=== PATIENT | male | born 1960 | race Caucasian/White ===

== ENCOUNTER 2023-07-09 08:53 | Emergency (ER) | payer OTHER, SELFPAY ==
[2023-07-09 08:53] VITALS: BP 185/103
--- NOTE | 2023-07-09 09:14 | EDRN ---
Last tylenol 08:00; last ibuprofen 02:30.
--- NOTE | 2023-07-09 09:35 | ED.GENMED ---
History of Present Illness
General
Chief Complaint: Musculo-Skeletal Complaint
Source: patient and spouse
Exam Limitations: none
Time Seen by Provider: 07/09/23 09:02
Nursing documentation reviewed up to this point in time: agreed with
Travel History
Have you had any contact with someone who has COVID-19?: No
Do you have any symptoms of coronavirus? Fever > 100 degrees, chills, cough, shortness of breath, sore throat, loss of taste or smell, muscle aches, or headache?: No
History of Present Illness
History of Present Illness:
Patient presents to ED secondary to worsening right wrist pain with swelling, 1 day after shoveling snow with ice off his driveway. Denies direct trauma. Denies loss of sensation or weakness. Patient has been taking Tylenol, Motrin, and applying
ice at home with minimal relief in symptoms. Patient is right-hand dominant. Denies previous history of similar symptoms. Denies drinking alcohol. Denies history of gout. Denies recent change in diet. Denies recent illness.
Past History
Past History
ED Past Medical History: HTN, Psychiatric (Anxiety) and Other (Back pain, Cluster Headaches, Herniated L3-L4, Sleep apnea uses CPAP)
ED Past Surgical History: Appendectomy, Cardiac (Right carotid artery), Orthopedic (Left ankle reconstruction, Right and left knee replacements, Right elbow surgery, ) and Other (Hernia repair X 3)
Social History
Tobacco: Smoker
Alcohol: Occasional
Personal:
Living: with family
Review of Systems
Review of Systems
Allergies reviewed?: Yes
All Other Systems: ROS reviewed and negative except as documented in HPI and ROS
Constitutional: Reports no symptoms; Denies fever
Musculoskeletal: Reports other (Wrist pain)
Skin: Reports no symptoms
Neurological: Reports no symptoms; Denies weakness or numbness
Phy Exam
Physical Exam
Physical Exam:
Physical Exam
General: mild painful distress, not acutely ill. afebrile
Head: nc/at. eomi
Neck: supple. normal range of motion
Neuro: alert and oriented. no focal neurological deficits
Skin: no rash
Psychiatric: well kept. interactive and cooperative
Extremities: right wrist with diffuse tenderness to palpation, radial > ulnar, with mild swelling, without erythema/warmth. no deformity.
Course
Orders/Labs/Results
Orders:
Orders
07/09/23 08:57
CR Wrist - Right Min 3 Views Urgent
Comment:
Reason For Exam: pain
Hand, Right 3 View [CR Hand - Right Min 3 Views] Urgent
Comment:
Reason For Exam: pain
07/09/23 09:33
Ibuprofen [Motrin] 400 mg PO NOW STA
Oxycodone/Acetaminophen [Percocet 5/325] 1 tablet PO NOW STA
07/09/23 09:34
Ice Pack-Treatment DIRECTED
Location: right wrist
[place] Wrist Right-Tx ONCE
Vital Signs
Initial and Last Documented VS:
Initial Vital Signs
Temp Pulse Resp BP Pulse Ox
97.8 F 107 20 185/103 96
07/09/23 08:53 07/09/23 08:53 07/09/23 08:53 07/09/23 08:53 07/09/23 08:53
Last Documented Vital Signs
Temp Pulse Resp BP Pulse Ox
97.8 F 107 20 185/103 96
07/09/23 08:53 07/09/23 08:53 07/09/23 08:53 07/09/23 08:53 07/09/23 08:53
MDM/Problems Addressed
MDM/Problems Addressed:
X-ray: no acute findings.
History/exam consistent with likely wrist sprain from repetitive use during shoveling. Sawyer wrist splint provided along with recommendation to continue elevation, ice application, as well as PCP f/u.
*Critical Care Note
Total Time (30-74mins, 75-104mins- exclusive of procedures): Not Applicable
ED Attending Note
-
Portions of this chart may have been created with voice recognition software.� Occasional wrong word or��sound alike� substitutions may have occurred due to the inherent limitations of voice recognition software.
Discharge Plan
Departure
Patient Disposition: Home (Routine Discharge)
Date of Disposition: 07/09/23
Time of Disposition: 10:30
Patient with high blood pressure during this ER visit?: Yes
Condition: Good
Discharge Problem:
Muscle strain of wrist
Instructions: Sprain (DC), Splint Care
Prescriptions:
New
oxycodone-acetaminophen [Percocet] 5-325 mg Tablet
1 tab PO Q6HPRN PRN (Reason: pain) Qty: 12 0RF
No Action
ggksstut-zkk-CQ-lycopen-lutein [Centrum Silver] 1 EACH tablet
1 tab PO DAILY
[place] Carbonate
300 mg PO BID
cyclobenzaprine 10 MG tablet
5 mg PO TIDPRN PRN (Reason: muscle spasm) Qty: 0 0RF
gabapentin 100 MG capsule
400 mg PO TID Qty: 0 0RF
Patient Comments:
Does take more often if needed.
hydrocodone-acetaminophen 1 TABLET tablet
1 - 2 tab PO Q4HPRN PRN (Reason: moderate to severe pain) Qty: 30 0RF
hydrocodone-acetaminophen 1 TABLET tablet
1 - 2 tab PO Q4HPRN PRN (Reason: moderate to severe pain) Qty: 30 0RF
sennosides [senna] 1 TABLET tablet
2 tab PO HSPRN PRN (Reason: constipation) Qty: 0 0RF
acetaminophen 325 MG tablet
650 mg PO Q4HWA Qty: 0 0RF
polyethylene glycol 3350 17 GRAMS powder in packet
17 grams PO DAILYPRN PRN (Reason: constipation) Qty: 0 0RF
tramadol 50 MG tablet
50 mg PO Q6HPRN PRN (Reason: mild pain) Qty: 75 0RF
magnesium hydroxide 30 ML suspension
30 ml PO HSPRN PRN (Reason: constipation) Qty: 0 0RF
aspirin 325 MG tablet,delayed release (DR/EC)
325 mg PO DAILY Qty: 0 0RF
bisacodyl [OneLAX Bisacodyl] 10 MG suppository
10 mg [place] DAILYPRN PRN (Reason: constipation) Qty: 0 0RF
pantoprazole 40 MG tablet,delayed release (DR/EC)
40 mg PO HS Qty: 30 0RF
docusate sodium 100 MG capsule
100 mg PO DAILY Qty: 0 0RF
bisacodyl 5 MG tablet,delayed release (DR/EC)
10 mg PO DAILYPRN PRN (Reason: constipation) Qty: 0 0RF
oxycodone 5 MG tablet
5 mg PO Q4HPRN PRN (Reason: moderate-severe pain) Qty: 75 0RF
Rx Instructions:
dx joint replacement
nicotine 21 MG patch 24 hour
21 mg transdermal DAILY Qty: 0 0RF
Patient Comments:
patch dated 02/02/14 found on RUE
Rx Instructions:
change to 14Mcg after one week and continue for 3 weeks, then decrease to 7mcg x 3 weeks , then d/c
metoprolol succinate 25 MG tablet extended release 24 hr
12.5 mg PO DAILY Qty: 30 0RF
Rx Instructions:
sig: take 1/2 tab po daily
Referrals:
Enoc Alatorre MD [Family Provider] -
Activity Restrictions/Additional Instructions:
As discussed, please follow-up with your primary care physician for reevaluation, including potential referral to orthopedic surgeon, if your symptoms persist. Please continue to use provided wrist splint as well as continuing to elevate the
affected arm as well as application of ice. Please continue to supplement Motrin with prescribed pain medication. Your prescription has been sent electronically to [facility] pharmacy in [place].
Interventions
Interventions:
*General Assessment Last Done: 07/09/23 10:54
*ED COVID-19 Vaccine History Last Done: 07/09/23 08:53
*Nursing Disposition Last Done: 07/09/23 10:54
ED-Musculoskeletal Assessment Last Done: 07/09/23 09:10
Discharge Date and Time
Discharge Date/Time: 07/09/23 10:56
[2023-07-09] MEDS: MOTRIN 400 MG PO (09:41)
[2023-07-09] MEDS: PERCOCET 5/325 1 TABLET PO (09:41)
== END 2023-07-09 10:56 | disposition home or self-care (01) ==
LOC: EMR 08:53
PROVIDERS: EMERGENCY PHYSICIAN Emergency Medicine; FAMILY PHYSICIAN Family Medicine
DX: S66.911A Strain of unspecified muscle, fascia and tendon at wrist and hand level, right hand, initial encounter (principal); X50.0XXA Overexertion from strenuous movement or load, initial encounter; I10 Essential (primary) hypertension; F17.200 Nicotine dependence, unspecified, uncomplicated
CPT/HCPCS: 99283; 73110; 73130

== ENCOUNTER 2023-10-28 19:38 | Emergency (ER) | payer OTHER, SELFPAY ==
[2023-10-28 19:41] VITALS: BP 180/100
[2023-10-28 20:58] VITALS: BP 151/87
[2023-10-28 20:59] VITALS: BMI 33.7
[2023-10-28 22:14] LABS: % Basophils 1.1 % (0-2); % Eosinophils 4.4 % (0-6); % Immature Granulocytes 0.2 % (0-0.5); % Lymphocytes 34.1 % (20.5-51.1); % Monocytes 7.3 % (1.7-9.3); % Neutrophils 52.9 % (42.2-75.2); Absolute Basophils 0.1 10^3/uL (0-0.2); Absolute Eosinophils 0.4 10^3/uL (0-0.7); Absolute Lymphocytes 2.7 10^3/uL (1.2-3.4); Absolute Monocytes 0.6 10^3/uL (0.1-0.6); Absolute Neutrophils 4.2 10^3/uL (1.4-6.5); Hematocrit 40.7 % (39.0-52.0); Hemoglobin 13.7 g/dL (13.0-18.0); Mean Corp Hgb Conc. 33.7 g/dL (33.0-37.0); Mean Corpuscular Hgb 29.1 pg (27.0-31.0); Mean Corpuscular Volume 86.4 fL (80.0-94.0); Mean Platelet Volume 8.6 fL (7.4-10.4); Nucleated Red Blood Cells % 0 % (-); Platelet Count 244 10^3/uL (130-400); Red Blood Cell Count 4.71 10^6/uL (4.70-6.10); Red Cell Dist. Width 15.5 % (11.5-14.5)
[2023-10-28 22:25] LABS: ALT (SGPT) < 10 U/L (0-50); AST (SGOT) 17 U/L (17-59); Alkaline Phosphatase 70 U/L (38-126); Blood Urea Nitrogen 13 mg/dl (9-20); Calcium 9.6 mg/dl (8.4-10.2); Carbon Dioxide 22 mmol/L (22-30); Chloride 108 mmol/L (98-107); Estimated Creatinine Clearance > 125 ml/min; Glucose 95 mg/dl (70-99); Lithium 0.5 mmol/L (0.6-1.2); Potassium 3.9 mmol/L (3.5-5.1); Sodium 137 mmol/L (135-145); Total Bilirubin 0.3 mg/dl (0.2-1.3); Total Protein 6.7 g/dl (6.3-8.2); eGFR > 60.00
[2023-10-28 22:37] LABS: NT-proBNP 86.8 pg/ml; Troponin I < 0.012 ng/ml
--- NOTE | 2023-10-28 22:41 | ED.GENMED ---
History of Present Illness
General
Chief Complaint: Dizziness
Source: patient and spouse
Time Seen by Provider: 10/28/23 21:19
Travel History
Have you had any contact with someone who has COVID-19?: No
Do you have any symptoms of coronavirus? Fever > 100 degrees, chills, cough, shortness of breath, sore throat, loss of taste or smell, muscle aches, or headache?: No
History of Present Illness
History of Present Illness:
63-year-old male with past medical history of vestibular disease, hypertension, hyperlipidemia, migraines presenting to the emergency department for evaluation of acute on chronic vertiginous symptoms but also noting shortness of breath. Patient
states that the shortness of breath is ultimately what brought him in as he is not sure if this is related to the vertigo. He ultimately stated that the shortness of breath is something that is been ongoing and he has an appointment scheduled with
the r d internship to be further evaluated but this is not until the end of November. Patient states the shortness of breath as a fleeting and quick sensation where he feels as if he has to take a deep breath and then the symptoms resolved. He also
notes that when he feels this way he will sometimes take an Ativan which will often take the symptoms away as well. Patient denies any fevers, chills, rigors, cough, chest pain, pleurisy, palpitations or any other concerns.
Past History
Past History
ED Past Medical History: Cancer, HTN, Hypercholesterolemia, Psychiatric (Anxiety) and Other (Back pain, Cluster Headaches, Herniated L3-L4, Sleep apnea uses CPAP)
ED Past Surgical History: Appendectomy, Cardiac (Right carotid artery), Orthopedic (Left ankle reconstruction, Right and left knee replacements, Right elbow surgery, ) and Other (Hernia repair X 3)
Social History
Tobacco: Smoker
Alcohol: Occasional
Drug: None
Personal:
Living: with family
Review of Systems
Review of Systems
All Other Systems: ROS reviewed and negative except as documented in HPI and ROS
Phy Exam
Physical Exam
Physical Exam:
GENERAL: Alert , in no apparent distress
HEAD: NCAT
EYE: conjunctiva clear
NECK: Supple
ENT: o/p clr, mmm.
CARDIAC: Regular rate and rhythm
LUNGS: Clear breath sounds bilaterally, no acute respiratory distress, no wheezes/rales/rhonchi
NEUROLOGICAL: Alert and oriented
SKIN: Warm and dry, skin intact.
MUSCULOSKELETAL: well perfused.
PSYCH: Normal and appropriate interaction.
Scores
Heart Failure Risk
Heart Failure Risk Score: Not Applicable
Heart Score for Chest Pain Patients
STEMI patient?: Not applicable
Withdrawal Assessment of Alcohol
Withdrawal Assessment Completed?: Not applicable
Course
Orders/Labs/Results
Orders:
Orders
10/28/23 21:31
Electrocardiogram (*1) Urgent
Reason for Study: Shortness of Breath
EKG- Treatment ONCE
10/28/23 21:32
CR Chest - 2 Views Urgent
Comment:
Reason For Exam: SOB
10/28/23 21:57
Complete Blood Count/With Diff Urgent
Comprehensive Metabolic Panel Urgent
[place] Urgent
NT-proBNP Urgent
Troponin I Urgent
Abnormal Lab Results
10/28/23
21:57
RDW 15.5 H %
(11.5-14.5)
Chloride 108 H mmol/L
(98-107)
[place] 0.5 L mmol/L
(0.6-1.2)
10/28/23 21:57
10/28/23 21:57
Vital Signs
Initial and Last Documented VS:
Initial Vital Signs
Temp Pulse Resp BP Pulse Ox
98.3 F 104 24 180/100 100
10/28/23 19:41 10/28/23 19:41 10/28/23 19:41 10/28/23 19:41 10/28/23 19:41
Last Documented Vital Signs
Temp Pulse Resp BP Pulse Ox
98.3 F 84 16 151/87 99
10/28/23 19:41 10/28/23 20:58 10/28/23 20:58 10/28/23 20:58 10/28/23 20:58
MDM/Problems Addressed
Differential Diagnosis Includes:
Anxiety, ACS and PE considered however given the fleeting nature and chronic nature of the symptoms I am not very suspicious for this to be the cause of patient's symptoms. I am also not suspicious for any acute infectious etiologies
MDM/Problems Addressed:
63-year-old male presenting emergency department for evaluation of intermittent shortness of breath that has been ongoing for an extended period of time. Patient admittedly is concerned and frustrated as he is not getting any answers for why he is
having this continuous vertigo, migraines and shortness of breath. He has multiple follow-up scheduled with different specialists, seeing a vestibular specialist this week, has pulmonary follow-up scheduled in November. Overall we will check a set of
labs, chest x-ray and EKG. Anticipate outpatient management and safe discharge home.
*Radiology
Radiology exam reviewed: preliminary read by ED provider (Normal chest x-ray)
*Pulse Oximetry
Patient hypoxic: no
*EKG
Interpreted by ED Provider?: Yes
Comparison EKG: no comparison EKG present
Heart Rate: 72
Rate: normal
Rhythm: sinus
[place]: normal axis
QRS Pattern: right bundle branch block
*Crutching Contractor Interpretation
Rate: normal
Rhythm: sinus
*Critical Care Note
Total Time (30-74mins, 75-104mins- exclusive of procedures): Not Applicable
Patient Management
Escalation/DeEscalation of care consider admission/obs:
Patient without any emergent findings. Stable for d/c home. Aware of return precautions. Has arranged outpatient follow up with pulm and neuro in coming days
ED Attending Note
-
Portions of this chart may have been created with voice recognition software.� Occasional wrong word or��sound alike� substitutions may have occurred due to the inherent limitations of voice recognition software.
Discharge Plan
Departure
Patient Disposition: Home (Routine Discharge)
Date of Disposition: 10/28/23
Time of Disposition: 22:46
Patient with high blood pressure during this ER visit?: Yes
Discharge Problem:
Shortness of breath, Vertigo
Instructions: Shortness of breath
Prescriptions:
No Action
iifwqswk-zlw-OX-lycopen-lutein [Centrum Silver] 1 EACH tablet
1 tab PO DAILY
[place] Carbonate
300 mg PO BID
cyclobenzaprine 10 MG tablet
5 mg PO TIDPRN PRN (Reason: muscle spasm) Qty: 0 0RF
gabapentin 100 MG capsule
400 mg PO TID Qty: 0 0RF
Patient Comments:
Does take more often if needed.
hydrocodone-acetaminophen 1 TABLET tablet
1 - 2 tab PO Q4HPRN PRN (Reason: moderate to severe pain) Qty: 30 0RF
hydrocodone-acetaminophen 1 TABLET tablet
1 - 2 tab PO Q4HPRN PRN (Reason: moderate to severe pain) Qty: 30 0RF
oxycodone-acetaminophen [Percocet] 5-325 mg Tablet
1 tab PO Q6HPRN PRN (Reason: pain) Qty: 12 0RF
sennosides [senna] 1 TABLET tablet
2 tab PO HSPRN PRN (Reason: constipation) Qty: 0 0RF
acetaminophen 325 MG tablet
650 mg PO Q4HWA Qty: 0 0RF
polyethylene glycol 3350 17 GRAMS powder in packet
17 grams PO DAILYPRN PRN (Reason: constipation) Qty: 0 0RF
tramadol 50 MG tablet
50 mg PO Q6HPRN PRN (Reason: mild pain) Qty: 75 0RF
magnesium hydroxide 30 ML suspension
30 ml PO HSPRN PRN (Reason: constipation) Qty: 0 0RF
aspirin 325 MG tablet,delayed release (DR/EC)
325 mg PO DAILY Qty: 0 0RF
bisacodyl [OneLAX Bisacodyl] 10 MG suppository
10 mg [place] DAILYPRN PRN (Reason: constipation) Qty: 0 0RF
pantoprazole 40 MG tablet,delayed release (DR/EC)
40 mg PO HS Qty: 30 0RF
docusate sodium 100 MG capsule
100 mg PO DAILY Qty: 0 0RF
bisacodyl 5 MG tablet,delayed release (DR/EC)
10 mg PO DAILYPRN PRN (Reason: constipation) Qty: 0 0RF
oxycodone 5 MG tablet
5 mg PO Q4HPRN PRN (Reason: moderate-severe pain) Qty: 75 0RF
Rx Instructions:
dx joint replacement
nicotine 21 MG patch 24 hour
21 mg transdermal DAILY Qty: 0 0RF
Patient Comments:
patch dated 02/02/14 found on RUE
Rx Instructions:
change to 14Mcg after one week and continue for 3 weeks, then decrease to 7mcg x 3 weeks , then d/c
metoprolol succinate 25 MG tablet extended release 24 hr
12.5 mg PO DAILY Qty: 30 0RF
Rx Instructions:
sig: take 1/2 tab po daily
Interventions
Interventions:
*Risk Screen - Suicide Last Done: 10/28/23 19:41
*Neglect/Abuse Screening Last Done: 10/28/23 19:41
ED- Neurological Assessment Last Done: 10/28/23 21:19
Discharge Date and Time
Print Language: LIBERIAN
[2023-10-28 22:57] VITALS: BP 133/76
== END 2023-10-28 23:06 | disposition home or self-care (01) ==
LOC: EMR 19:38
PROVIDERS: Physician Assistant Medical; EMERGENCY PHYSICIAN Emergency Medicine; FAMILY PHYSICIAN Family Medicine
DX: R06.02 Shortness of breath (principal); R42 Dizziness and giddiness; I10 Essential (primary) hypertension; E78.00 Pure hypercholesterolemia, unspecified; F41.9 Anxiety disorder, unspecified; G47.30 Sleep apnea, unspecified; F17.200 Nicotine dependence, unspecified, uncomplicated
CPT/HCPCS: 99283; 71046; 80053; 80178; 83880; 84484; 85025; 93005

== ENCOUNTER → 2024-03-02 06:15 | Day surgery (SDC) | payer OTHER, SELFPAY | LOC: GI 06:15 | PROVIDERS: ATTENDING PHYSICIAN Surgery; FAMILY PHYSICIAN Family Medicine | DX: Z12.11 Encounter for screening for malignant neoplasm of colon (principal); Z86.010 Personal history of colon polyps; Z80.0 Family history of malignant neoplasm of digestive organs; D12.3 Benign neoplasm of transverse colon; D12.5 Benign neoplasm of sigmoid colon | CPT/HCPCS: 45385; 88305 ==

== ENCOUNTER 2024-06-28 11:48 | Emergency (ER) | payer MEDICARE, OTHER, SELFPAY ==
[2024-06-28 12:51] VITALS: BMI 32.6
[2024-06-28 13:25] VITALS: BP 112/64
[2024-06-28 13:43] LABS: Urine Albumin Trace (Neg - Trace); Urine Bilirubin Negative (Negative); Urine Character Clear (Clear); Urine Color Yellow; Urine Glucose Negative (Negative); Urine Ketone Trace (Negative); Urine Leukocyte Trace (Negative); Urine Nitrite Negative (Negative); Urine Occult Blood Trace (Negative); Urine Specific Gravity 1.015 (<1.030); Urine Urobilinogen Negative (Neg - 1+)
[2024-06-28 13:51] LABS: % Basophils 0.4 % (0-2); % Immature Granulocytes 0.3 % (0-0.5); % Lymphocytes 15.6 % (20.5-51.1); % Monocytes 5.5 % (1.7-9.3); % Neutrophils 77.2 % (42.2-75.2); Absolute Eosinophils 0.1 10^3/uL (0-0.7); Absolute Lymphocytes 1.7 10^3/uL (1.2-3.4); Absolute Monocytes 0.6 10^3/uL (0.1-0.6); Absolute Neutrophils 8.3 10^3/uL (1.4-6.5); Hemoglobin 14.6 g/dL (13.0-18.0); Mean Corp Hgb Conc. 31.1 g/dL (33.0-37.0); Mean Corpuscular Hgb 27.9 pg (27.0-31.0); Mean Corpuscular Volume 89.7 fL (80.0-94.0); Mean Platelet Volume 8.9 fL (7.4-10.4); Nucleated Red Blood Cells % 0 % (-); Platelet Count 301 10^3/uL (130-400); Red Blood Cell Count 5.24 10^6/uL (4.70-6.10); Red Cell Dist. Width 15.1 % (11.5-14.5); White Blood Cell Count 10.8 10^3/uL (4.8-10.8)
[2024-06-28 14:00] VITALS: BP 111/66
[2024-06-28 14:04] LABS: Troponin I < 0.012 ng/ml; Urine Mucus Many
[2024-06-28 14:05] LABS: Urine Squamous Cell 0-2 /LPF (Few)
[2024-06-28 14:07] LABS: Urine Amorphous Seen; Urine Hyaline Cast 0-2 /LPF (0-2); Urine Red Blood Cell 0-2 /HPF (0-2); Urine White Cell 0-2 /HPF (0-5)
[2024-06-28 14:23] LABS: ALT (SGPT) 10 U/L (0-50); AST (SGOT) 19 U/L (17-59); Albumin 4.3 g/dl (3.5-5.0); Alkaline Phosphatase 73 U/L (38-126); Blood Urea Nitrogen 18 mg/dl (9-20); Carbon Dioxide 26 mmol/L (22-30); Chloride 103 mmol/L (98-107); Estimated Creatinine Clearance 104 ml/min; Glucose 110 mg/dl (70-99); Sodium 137 mmol/L (135-145); Total Bilirubin 0.5 mg/dl (0.2-1.3); eGFR > 60.00
[2024-06-28 14:29] LABS: Lactic Acid 0.9 mmol/L (0.7-2.0)
[2024-06-28] MEDS: MORPHINE SULFATE 4 MG IV (14:49)
[2024-06-28] MEDS: ZOFRAN 4 MG IV (14:50)
[2024-06-28 14:54] LABS: Lipase 25 U/L (23-300)
[2024-06-28 15:31] VITALS: BP 119/68
--- NOTE | 2024-06-28 15:34 | ED.GENMED ---
History of Present Illness
General
Chief Complaint: Abdominal Pain
Source: patient and spouse
Exam Limitations: none
Time Seen by Provider: 06/28/24 13:02
History of Present Illness
History of Present Illness:
64-year-old male who presents with mid abdominal pain in the periumbilical region. Was seen in urgent care and sent for evaluation. Patient has no history of bowel obstruction.Does have a history of appendectomy as well as hernia surgeries in the
past. The patient states that patient was watching TV when it came on on the day prior to arrival. The patient states that he has had a little bit of nausea. Has been passing gas from below. Has not been vomiting. No fevers. He is a smoker.
Spouse states that urgent care was concerned he could have a small bowel obstruction
Past History
Past History
ED Past Medical History: Cancer, HTN, Hypercholesterolemia, Psychiatric (Anxiety) and Other (Back pain, Cluster Headaches, Herniated L3-L4, Sleep apnea uses CPAP)
ED Past Surgical History: Appendectomy, Cardiac (Right carotid artery), Orthopedic (Left ankle reconstruction, Right and left knee replacements, Right elbow surgery, ) and Other (Hernia repair X 3)
Social History
Tobacco: Smoker
Alcohol: Occasional
Drug: None
Personal:
Living: with family
Phy Exam
Physical Exam
Physical Exam:
CONSTITUTIONAL Patient alert and oriented to person, place and time. Well-appearing. Vital signs reviewed.
HEAD atraumatic, normocephalic.
EYES eyelids normal to inspection, Extraocular muscles intact, Conjunctiva normal, Sclera normal.
NECK normal range of motion, Trachea midline, no jugular venous distention.
RESPIRATORY CHEST No respiratory distress noted, Chest expansion equal, Bilateral breath sounds clear.
CARDIOVASCULAR regular rate and rhythm, Heart sounds normal. Heart rate 74 exam on telemetry
ABDOMEN No distention. Normal bowel sounds. There is some tenderness noted in the infraumbilical region. Is not tender in the suprapubic region. No right lower quadrant or left lower quadrant tenderness.
BACK normal inspection, no obvious deformities
UPPER EXTREMITY range of motion normal, Motor strength normal, no cyanosis, no edema.
LOWER EXTREMITY range of motion normal, Motor strength normal, no cyanosis, no edema.
NEURO Speech normal, No focal motor deficits, [place] coma scale 15, Memory normal, Cranial Nerves intact to screening exam.
SKIN skin warm, dry, and normal in color.
Course
Orders/Labs/Results
Orders:
Orders
06/28/24 13:27
CMP [Comprehensive Metabolic Panel] Urgent
Complete Blood Count/With Diff Urgent
Troponin I Urgent
Urinalysis Reflex To Culture Urgent
Date Specimen was Collected: 06/28/24
Time Specimen was Collected: 13:08
Urine Microscopic Reflex Cult Urgent
06/28/24 13:46
CT Abd/Pel (IV only)-DH only Urgent
Comment:
Reason For Exam: mid abd pain, h/o appendectomy
06/28/24 13:50
Lactic Acid Urgent
Lipase Urgent
06/28/24 14:25
Vital Signs- Treatment ONCE
Frequency: Once
Morphine Sulfate 4 mg IV NOW STA
Ondansetron Injectable [Zofran] 4 mg IV NOW STA
Abnormal Lab Results
06/28/24
13:27
MCHC 31.1 L g/dL
(33.0-37.0)
RDW 15.1 H %
(11.5-14.5)
Absolute Neuts (auto) 8.3 H 10^3/uL
(1.4-6.5)
Neutrophils % 77.2 H %
(42.2-75.2)
Lymphocytes % 15.6 L %
(20.5-51.1)
Glucose 110 H mg/dl
(70-99)
Urine Ketones Trace A
(Negative)
Ur Occult Blood Reflex Trace A
(Negative)
Leukocyte Esterase Rfl Trace A
(Negative)
06/28/24 13:27
06/28/24 13:27
Vital Signs
Initial and Last Documented VS:
Initial Vital Signs
BP Pulse Ox
112/64 95
06/28/24 13:25 06/28/24 13:25
Last Documented Vital Signs
Temp Resp BP Pulse Ox
98.2 F 18 119/71 95
06/28/24 16:41 06/28/24 16:41 06/28/24 16:00 06/28/24 16:15
MDM/Problems Addressed
Differential Diagnosis Includes:
Small bowel obstruction, ileus, enteritis, AAA, ischemic bowel disease, diverticulitis, UTI, retroperitoneal hemorrhage, pancreatitis
MDM/Problems Addressed:
Abdominal pain, ileus, suspected enteritis
*Radiology
Radiology exam reviewed: preliminary read by ED provider (No free air noted) and radiology read reviewed
*Pulse Oximetry
Patient hypoxic: no
*Computer Systems Technician Interpretation
Rate: normal
Interpretation: normal
Rhythm: sinus
*Critical Care Note
Total Time (30-74mins, 75-104mins- exclusive of procedures): Not Applicable
Data Reviewed
Source: patient and spouse
Prescriptions/Medications Considered But Not Given:
Consider antibiotics but question whether this is just an ileus versus enteritis
Patient Management
Escalation/DeEscalation of care consider admission/obs:
Patient actually feels better on reassessment. CT noted. Question whether this is just an ileus related to an enteritis. I do think that it is reasonable to manage at home with a clear liquid diet for the next 24 hours. Patient agrees. He also
agrees to return immediately for return of pain, vomiting, fevers. Heart rate not documented by nursing but was normal throughout his stay.
ED Attending Note
-
Portions of this chart may have been created with voice recognition software.� Occasional wrong word or��sound alike� substitutions may have occurred due to the inherent limitations of voice recognition software.
Discharge Plan
Departure
Patient Disposition: Home (Routine Discharge)
Date of Disposition: 06/28/24
Time of Disposition: 16:37
Patient with high blood pressure during this ER visit?: No
Discharge Problem:
Enteritis
Instructions: Abdominal Pain, Acute Nausea and Vomiting
Prescriptions:
New
ondansetron 4 mg tablet,disintegrating
4 mg PO Q8H PRN (Reason: nausea and vomiting) Qty: 14 0RF
dicyclomine 20 mg tablet
20 mg PO QID PRN (Reason: spasm) Qty: 10 0RF
No Action
dmzuxbfa-oeq-NU-lycopen-lutein [Centrum Silver] 1 EACH tablet
1 tab PO DAILY
[place] Carbonate
300 mg PO BID
cyclobenzaprine 10 MG tablet
5 mg PO TIDPRN PRN (Reason: muscle spasm) Qty: 0 0RF
gabapentin 100 MG capsule
400 mg PO TID Qty: 0 0RF
Patient Comments:
Does take more often if needed.
hydrocodone-acetaminophen 1 TABLET tablet
1 - 2 tab PO Q4HPRN PRN (Reason: moderate to severe pain) Qty: 30 0RF
hydrocodone-acetaminophen 1 TABLET tablet
1 - 2 tab PO Q4HPRN PRN (Reason: moderate to severe pain) Qty: 30 0RF
oxycodone-acetaminophen [Percocet] 5-325 mg Tablet
1 tab PO Q6HPRN PRN (Reason: pain) Qty: 12 0RF
sennosides [senna] 1 TABLET tablet
2 tab PO HSPRN PRN (Reason: constipation) Qty: 0 0RF
acetaminophen 325 MG tablet
650 mg PO Q4HWA Qty: 0 0RF
polyethylene glycol 3350 17 GRAMS powder in packet
17 grams PO DAILYPRN PRN (Reason: constipation) Qty: 0 0RF
tramadol 50 MG tablet
50 mg PO Q6HPRN PRN (Reason: mild pain) Qty: 75 0RF
magnesium hydroxide 30 ML suspension
30 ml PO HSPRN PRN (Reason: constipation) Qty: 0 0RF
aspirin 325 MG tablet,delayed release (DR/EC)
325 mg PO DAILY Qty: 0 0RF
bisacodyl [OneLAX Bisacodyl] 10 MG suppository
10 mg [place] DAILYPRN PRN (Reason: constipation) Qty: 0 0RF
pantoprazole 40 MG tablet,delayed release (DR/EC)
40 mg PO HS Qty: 30 0RF
docusate sodium 100 MG capsule
100 mg PO DAILY Qty: 0 0RF
bisacodyl 5 MG tablet,delayed release (DR/EC)
10 mg PO DAILYPRN PRN (Reason: constipation) Qty: 0 0RF
oxycodone 5 MG tablet
5 mg PO Q4HPRN PRN (Reason: moderate-severe pain) Qty: 75 0RF
Rx Instructions:
dx joint replacement
nicotine 21 MG patch 24 hour
21 mg transdermal DAILY Qty: 0 0RF
Patient Comments:
patch dated 02/02/14 found on RUE
Rx Instructions:
change to 14Mcg after one week and continue for 3 weeks, then decrease to 7mcg x 3 weeks , then d/c
metoprolol succinate 25 MG tablet extended release 24 hr
12.5 mg PO DAILY Qty: 30 0RF
Rx Instructions:
sig: take 1/2 tab po daily
Referrals:
Enoc Alatorre MD [Family Provider] -
Activity Restrictions/Additional Instructions:
Please stick to a clear liquid diet for the next 24 hours. Return immediately for worsening pain, intractable vomiting, worsening symptoms or any other concerns. Please see your doctor next 2 to 3 days for follow-up and reevaluation
Interventions
Interventions:
*Risk Screen - Suicide Last Done: 06/28/24 17:04
*General Assessment Last Done: 06/28/24 12:51
*Neglect/Abuse Screening Last Done: 06/28/24 17:04
ED- Fall Risk Assessment Last Done: 06/28/24 12:51
*ED COVID-19 Vaccine History Last Done: 06/28/24 12:51
*Nursing Disposition Last Done: 06/28/24 17:04
VP-Evgxru-Zabghwpwoa Assessment Last Done: 06/28/24 12:51
Discharge Date and Time
Discharge Date/Time: 06/28/24 17:04
Print Language: [id number]
[2024-06-28 16:00] VITALS: BP 119/71
== END 2024-06-28 17:04 | disposition home or self-care (01) ==
LOC: EMR 11:48
PROVIDERS: EMERGENCY PHYSICIAN Emergency Medicine; FAMILY PHYSICIAN Family Medicine
DX: K52.9 Noninfective gastroenteritis and colitis, unspecified (principal); E78.00 Pure hypercholesterolemia, unspecified; I10 Essential (primary) hypertension; G47.30 Sleep apnea, unspecified; F17.200 Nicotine dependence, unspecified, uncomplicated; Z90.49 Acquired absence of other specified parts of digestive tract
CPT/HCPCS: 99284; 96374; 96375; 74177; 80053; 81003; 81015; 83605; 83690; 84484; 85025; Q9967